=== PATIENT | male | born 1960 | race Caucasian/White ===

== ENCOUNTER 2016-08-26 17:38 | Inpatient (IN) | payer OTHER ==
[~2016-08-26] VITALS: Ht 188 cm; Wt 79.4 kg
[2016-08-26 17:49] VITALS: BP 131/76
[2016-08-26] MEDS ORDERED: Phenytoin 1,000 MG in NS 275 ML IVPB ONE (18:30)
[2016-08-26 19:20] VITALS: BP 136/79
[2016-08-26 19:37] VITALS: BP 144/84
[2016-08-26] MEDS ORDERED: NKM (19:38)
[2016-08-26] MEDS ORDERED: LORazepam Inj 2mg/ml 1ml ONE (19:40)
[2016-08-26] MEDS ORDERED: LORazepam Inj 2mg/ml 1ml IV ONE (19:45)
[2016-08-26 19:53] LABS: BASOPHILS % (AUTO) 0.8 % (0.0-2.0); EOSINOPHILS % (AUTO) 2.2 % (0.0-3.0); LYMPHOCYTES % (AUTO) 9.4 % (20.0-45.0); MEAN CORPUSCULAR HEMOGLOBIN 32.5 PG (27.0-31.0); MEAN CORPUSCULAR VOLUME 93 FL (80-99); MEAN PLATELET VOLUME 5.6 FL (6.5-10.1); MONOCYTES % (AUTO) 4.9 % (1.0-10.0); NEUTROPHILS % (AUTO) 82.7 % (45.0-75.0); PLATELET COUNT 238 K/UL (150-450); RED BLOOD COUNT 4.52 M/UL (4.70-6.10); RED CELL DISTRIBUTION WIDTH 12.7 % (11.6-14.8); WHITE BLOOD COUNT 11.3 K/UL (4.8-10.8)
--- NOTE | 2016-08-26 19:53 | Emergency Room Report ---
History of Present Illness General Chief Complaint: Altered Mental Status Source: Patient, EMS Present Illness HPI Patient is a 36-year-old male who presented after increased altered level consciousness. Patient had been noted to have a possible seizure. The patient to be postictal. History is limited by patient's initial mental status. The patient denies taking any seizure medications. Allergies: Coded Allergies: UNABLE TO ASSESS (Unverified , 08/26/16) Patient History Past Medical History: see triage record Reviewed Nursing Documentation: PMH: Agreed, PSxH: Agreed Nursing Documentation-PMH Past Medical History Deferred: Pt Cognitively Impaired Past Medical History: Deferred Review of Systems All Other Systems: limited - by mental status Physical Exam Vital Signs Date Time Temp Pulse Resp B/P Pulse Ox O2 Delivery O2 Flow Rate FiO2 08/26/16 17:28 97.2 108 18 152/88 96 Room Air Sp02 EP Interpretation: reviewed, normal General Appearance: normal inspection, well appearing, no apparent distress, alert, Postictal Head: atraumatic ENT: normal ENT inspection, hearing grossly normal, normal voice Neck: normal inspection, full range of motion, supple, no bony tend Respiratory: normal inspection, lungs clear, normal breath sounds, no respiratory distress, no retraction, no wheezing Cardiovascular #1: regular rate, rhythm, no edema Gastrointestinal: normal inspection, normal bowel sounds, non tender, soft, no guarding, no hernia Genitourinary: no CVA tenderness Musculoskeletal: normal inspection, back normal, normal range of motion Neurologic: normal inspection, alert, oriented x3, responsive, stripper cutter machine III-XII nml as tested, speech normal Psychiatric: normal inspection, judgement/insight normal, mood/affect normal Skin: no rash, other - facial abrasion, left hand abrasion Medical Decision Making Diagnostic Impression: Primary Impression: Recurrent seizures Additional Impressions: Facial abrasion Hand abrasion ER Course Patient presented for seizure. Differential diagnosis included cysticercosis, electrolyte abnormality, mass lesion, or cranial hemorrhage. Because of complexity of patient's case laboratory testing and imaging studies were ordered. The because of head trauma CT the head was ordered. CT the head read by radiology showed bilateral inferior frontal anterior temporal encephalomalacia left greater than right. The patient was noted to have a some unwitnessed seizure activity in emergency department. The patient was subsequently loaded with Dilantin. Patient was given Ativan for a recurrent seizure after loading with Dilantin. Patient was noted to have no known prior seizure history. Patient was discussed with Dr. Peace Brambila for inpatient management due to multiple seizures despite medications. Labs Test 08/26/16 19:16 08/26/16 20:03 08/26/16 20:35 White Blood Count 11.3 K/UL (4.8-10.8) Red Blood Count 4.52 M/UL (4.70-6.10) Hemoglobin 14.7 G/DL (14.2-18.0) Hematocrit 42.1 % (42.0-52.0) Mean Corpuscular Volume 93 FL (80-99) Mean Corpuscular Hemoglobin 32.5 PG (27.0-31.0) Mean Corpuscular Hemoglobin Concent 35.0 G/DL (32.0-36.0) Red Cell Distribution Width 12.7 % (11.6-14.8) Platelet Count 238 K/UL (150-450) Mean Platelet Volume 5.6 FL (6.5-10.1) Neutrophils (%) (Auto) 82.7 % (45.0-75.0) Lymphocytes (%) (Auto) 9.4 % (20.0-45.0) Monocytes (%) (Auto) 4.9 % (1.0-10.0) Eosinophils (%) (Auto) 2.2 % (0.0-3.0) Basophils (%) (Auto) 0.8 % (0.0-2.0) Prothrombin Time 10.7 SEC (9.30-11.50) Prothromb Time International Ratio 1.1 (0.9-1.1) Activated Partial Thromboplast Time 22 SEC (23-33) Sodium Level 143 mEQ/L (135-145) Potassium Level 3.9 mEQ/L (3.4-4.9) Chloride Level 102 mEQ/L (98-107) Carbon Dioxide Level 19 mEQ/L (20-30) Anion Gap 22 (5-15) Blood Urea Nitrogen 15 mg/dL (7-23) Creatinine 1.1 mg/dL (0.7-1.2) Estimat Glomerular Filtration Rate > 60 mL/min (>60) Glucose Level 142 mg/dL (74-106) Calcium Level 9.1 mg/dL (8.6-10.2) Total Bilirubin 0.5 mg/dL (0.0-1.2) Aspartate Amino Transf (AST/SGOT) 19 U/L (5-40) Alanine Aminotransferase (ALT/SGPT) 14 U/L (3-41) Alkaline Phosphatase 104 U/L (40-129) Troponin I < 0.30 ng/mL (<=0.30) Total Protein 6.8 g/dL (6.6-8.7) Albumin 4.3 g/dL (3.5-5.2) Globulin 2.5 g/dL Albumin/Globulin Ratio 1.7 (1.0-2.7) Urine Opiates Screen Negative (NEGATIVE) Urine Barbiturates Screen Negative (NEGATIVE) Phencyclidine (PCP) Screen Negative (NEGATIVE) Urine Amphetamines Screen Positive (NEGATIVE) Urine Benzodiazepines Screen Negative (NEGATIVE) Urine Cocaine Screen Negative (NEGATIVE) Urine Marijuana (THC) Screen Negative (NEGATIVE) Lactic Acid Level 8.20 mmol/L (0.66-2.22) EKG Diagnostic Results Rate: normal Rhythm: NSR ST Segments: no acute changes Last Vital Signs Date Time Temp Pulse Resp B/P Pulse Ox O2 Delivery O2 Flow Rate FiO2 08/26/16 19:37 97.2 78 17 144/84 95 Room Air Status: unchanged Disposition: ADMITTED INPATIENT Condition: Serious Edmund Alvarenga Aug 26, 2016 19:53
[2016-08-26 20:03] LABS: INR 1.1 (0.9-1.1); PROTHROMBIN TIME 10.7 SEC (9.30-11.50)
[2016-08-26 20:10] LABS: TROPONIN I < 0.30 ng/mL (<=0.30)
[2016-08-26 20:13] LABS: ALANINE AMINOTRANSFERASE 14 U/L (3-41); ALBUMIN/GLOBULIN RATIO 1.7 (1.0-2.7); ANION GAP 22 (5-15); ASPARTATE AMINO TRANSFERASE 19 U/L (5-40); CALCIUM 9.1 mg/dL (8.6-10.2); CARBON DIOXIDE 19 mEQ/L (20-30); CHLORIDE 102 mEQ/L (98-107); CREATININE 1.1 mg/dL (0.7-1.2); GLOMERULAR FILTRATION RATE > 60 mL/min (>60); HEMOLYSIS 50; POTASSIUM 3.9 mEQ/L (3.4-4.9); SODIUM 143 mEQ/L (135-145); TOTAL PROTEIN 6.8 g/dL (6.6-8.7)
[2016-08-26 20:20] LABS: REFLEX LACTIC ACID YES OR NO YES
[2016-08-26 20:36] VITALS: BP 128/71
[2016-08-26] MEDS ORDERED: LORazepam Inj 2mg/ml 1ml IV PRN (22:45)
[2016-08-26] MEDS ORDERED: Acetaminophen 650 MG SUPP RECTAL PRN (22:45)
[2016-08-26 23:13] VITALS: BP 127/76
[2016-08-27] VITALS (7 sets, daily range): BP systolic 114–134; BP diastolic 59–77
[2016-08-27] MEDS: 1/2NS w/KCl 20mEq 1000ml 1,000 ML IV SCH ×3 (00:59→15:53)
[2016-08-27] MEDS ORDERED: NovoLOG Insulin Flexpen SUBQ SCH ×4 (06:30)
[2016-08-27] MEDS ORDERED: Insulin NPH SUBQ SCH (06:30)
[2016-08-27 06:38] LABS: BASOPHILS % (AUTO) 0.9 % (0.0-2.0); EOSINOPHILS % (AUTO) 3.7 % (0.0-3.0); LYMPHOCYTES % (AUTO) 16.2 % (20.0-45.0); MEAN CORPUSCULAR HEMOGLOBIN 30.4 PG (27.0-31.0); MEAN CORPUSCULAR HGB CONC 33.3 G/DL (32.0-36.0); MEAN CORPUSCULAR VOLUME 91 FL (80-99); MEAN PLATELET VOLUME 5.7 FL (6.5-10.1); MONOCYTES % (AUTO) 8.1 % (1.0-10.0); NEUTROPHILS % (AUTO) 71.1 % (45.0-75.0); PLATELET COUNT 275 K/UL (150-450); RED BLOOD COUNT 4.85 M/UL (4.70-6.10); RED CELL DISTRIBUTION WIDTH 12.6 % (11.6-14.8); WHITE BLOOD COUNT 10.9 K/UL (4.8-10.8)
[2016-08-27 06:43] LABS: HEMOGLOBIN A1C 5.1 % (< 6.0)
[2016-08-27 07:13] LABS: ANION GAP 16 (5-15); CARBON DIOXIDE 25 mEQ/L (20-30); CHLORIDE 98 mEQ/L (98-107); CREATININE 0.9 mg/dL (0.7-1.2); GLOMERULAR FILTRATION RATE > 60 mL/min (>60); HEMOLYSIS 8; POTASSIUM 3.9 mEQ/L (3.4-4.9); SODIUM 139 mEQ/L (135-145)
[2016-08-27] MEDS: Phenytoin Susp 100mg/4ml NG SCH ×3 (08:25→22:05)
[2016-08-27] MEDS ORDERED: Pantoprazole Inj IV SCH (09:00)
[2016-08-27] MEDS: Heparin 5000 units/ml inj SUBQ SCH ×3 (09:02→22:06)
--- NOTE | 2016-08-27 10:33 | Diagnostic Imaging Report ---
Indications: Altered metal status Technique: Spiral acquisitions obtained through the brain. Angled axial and coronal 5 x 5 mm slices were reconstructed. Total dose length product 1629 mGycm. CTDI vol(s) 70 mGy. Dose reduction achieved using automated exposure control Comparison: None Findings: There is bilateral inferior frontal encephalomalacia. There is encephalomalacia of the left temporal tip. No acute hemorrhage or edema. No mass effect or midline shift. Otherwise normal bender-white differentiation. Intact calvarium. Visualized orbits and sinuses are unremarkable. Impression: Old bilateral inferior frontal, left temporal tip encephalomalacia, may indicate prior trauma or infarcts. Negative for acute intracranial bleed or mass effect This agrees with the preliminary interpretation provided overnight by Dr. Wheeler The CT scanner at [facility] is accredited by the [employer] and the scans are performed using protocols designed to limit radiation exposure to as low as reasonably achievable to attain images of sufficient resolution adequate for diagnostic evaluation.
--- NOTE | 2016-08-27 16:18 | History and Physical Report ---
DATE OF ADMISSION: 08/26/2016 CHIEF COMPLAINT: Altered level of consciousness. HISTORY OF PRESENT ILLNESS: This is a 56-year-old male who was brought in by paramedics after being found on the to have epileptic seizure. The patient was found to be postictal according to the ER physician description. He was given 2 doses of Dilantin PA and was sent to telemetry. The patient is psychotic and unable to give any further information. PAST MEDICAL HISTORY: Psychiatric problems, unable to define exactly but the patient seems to be psychotic. MEDICATIONS: Unknown. ALLERGIES: No known allergies. FAMILY HISTORY: Unable to obtain due to his mental status. SOCIAL HISTORY: Unable to obtain due to his mental status. REVIEW OF SYSTEMS: Unable to obtain due to his mental status. PHYSICAL EXAMINATION: GENERAL: This is an elderly disheveled male, who is in no acute distress. VITAL SIGNS: Blood pressure 128/71, pulse 80 and regular, respirations 20, and temperature 98.2. HEENT: The head is normocephalic and atraumatic. Pupils are equal, round, and reactive to light and accommodation consensually. NECK: Supple. Trachea midline. There was no lymphadenopathy or thyromegaly. LUNGS: Clear to auscultation and percussion. HEART: Regular rate and rhythm without rubs, murmurs, or gallops. ABDOMEN: Soft and nontender. Bowel sounds were active. EXTREMITIES: No clubbing, cyanosis, or edema. NEUROLOGICAL: He is confused. There were no gross focal findings. LABORATORY AND ANCILLARY DATA: CBC within normal limits. Urine-tox screen positive for amphetamines. Dilantin level pending. CT of the head, read by radiology, according to the ER physician showed bilateral inferior frontal and anterior temporal encephalomalacia, left greater than right. ASSESSMENT: 1. Unwitnessed seizure. 2. Encephalomalacia. 3. Psychiatric disorder. 4. Substance abuse. PLAN: 1. Obtain Dilantin level. 2. Neurology consult. 3. Obtain EEG. 4. Obtain therapeutic Dilantin level. Merrill Castro JOB#: [id number] CC:
[2016-08-27] MEDS ORDERED: Levemir Flexpen SUBQ SCH (21:00)
[2016-08-28] VITALS: BP 124/69
[2016-08-28] MEDS: 1/2NS w/KCl 20mEq 1000ml 1,000 ML IV SCH ×4 (00:28→23:45)
[2016-08-28 04:00] VITALS: BP 125/68
[2016-08-28 08:00] VITALS: BP 114/69
--- NOTE | 2016-08-28 08:15 | Cardiology Report ---
APPROVED REPORT EKG Measurement Heart [id number] Normal sinus rhythm Normal ECG
[2016-08-28] MEDS: Heparin 5000 units/ml inj SUBQ SCH ×2 (09:19→21:43)
[2016-08-28] MEDS: Phenytoin Susp 100mg/4ml NG SCH ×2 (09:52→17:14)
--- NOTE | 2016-08-28 10:54 | General Progress Note ---
Assessment/Plan Assessment/Plan Sz DO Dil[place] Level Therapeutic. Neuro Consult pending. Has encephalomalacia. To ambulate Subjective Allergies: Coded Allergies: TETRACYCLINES (Verified Allergy, Severe, [place]-like rashes, 08/27/16) Subjective Confused Objective Last 24 Hour Vital Signs Date Time Temp Pulse Resp B/P Pulse Ox O2 Delivery O2 Flow Rate FiO2 08/28/16 08:00 61 08/28/16 08:00 97.0 59 20 114/69 98 Room Air 08/28/16 04:00 91 08/28/16 04:00 97.7 57 20 125/68 98 Room Air 08/28/16 00:00 62 08/28/16 00:00 97.8 59 20 124/69 97 Room Air 08/27/16 20:00 97.5 70 20 119/59 97 Room Air 08/27/16 20:00 72 08/27/16 16:00 60 08/27/16 15:48 97.6 58 20 114/68 97 Room Air 08/27/16 12:00 70 08/27/16 11:58 97.7 64 19 121/71 97 Room Air Intake and Output 08/27/16 08/28/16 19:00 07:00 Intake Total 2020 ml 817 ml Output Total 200 ml 2100 ml Balance 1820 ml -1283 ml Intake Oral 520 ml IV Total 1500 ml 817 ml Output Urine Total 200 ml 2100 ml # Voids 4 Laboratory Tests 08/28/16 08:20: Phenytoin (Dilantin) Level 11.7 Height (Feet): 6 Height (Inches): 2.00 Weight (Pounds): 175 Objective Cv RR Lungs CTA Abd SNT. BS + E No CCE AAYUSH WALTER August 28, 2016 10:54
[2016-08-28 12:00] VITALS: BP 139/53
--- NOTE | 2016-08-28 13:07 | Neurology Progress Note ---
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
[2016-08-28 14:21] LABS: THYROID STIMULATING HORMONE 1.37 uIU/mL (0.300-4.500)
[2016-08-28 16:00] VITALS: BP 109/71
[2016-08-28 20:00] VITALS: BP 109/71
--- NOTE | 2016-08-28 22:58 | Consultation ---
DATE OF CONSULTATION: 08/28/2016 NEUROLOGICAL CONSULTATION: CONSULTING PHYSICIAN: Santos Fairbanks M.D. ATTENDING/REQUESTING PHYSICIAN: Peace Burr M.D. HISTORY OF PRESENT ILLNESS: This is a 56-year-old man seen in neurological consultation to evaluate the episodes of transient loss of consciousness. The patient informed me that he is homeless. He had no seizures in the past. He was brought to this hospital for "possible" seizures. He was postictal, currently also confirming presence of bitten tongue and broke nose bridge. His vital signs on admission, blood pressure 152/88, temperature 97.2. His initial laboratory studies included CBC with WBC 11.3. Coagulation panel normal. Toxicology panel positive for methamphetamine. Phenytoin level today is 11.7. Chemistry panel, normal TSH, carbon dioxide of 19, anion gap of 22, blood sugar 142, lactic acid 8.20. CAT scan of the brain, old bilateral inferior frontal and left temporal tip encephalomalacia indicative of prior trauma or infarct. No evidence of acute abnormalities. No mass effect. Following admission, EEG was obtained and this revealed no ongoing seizure event, but there was slight diffuse slowing . The patient was loaded with Dilantin. While under observation, he had unwitnessed episode seizure. PAST MEDICAL HISTORY: The patient denies major medical problems. He recalled having multiple head trauma in the past. The patient is amnestic of the events. MEDICATIONS: He is not on any medications. FAMILY HISTORY: No family members with seizures. He has a daughter who lives in [facility]. SOCIAL HISTORY: The patient is homeless. He is a smoker and occasionally using methamphetamines. Denies alcohol abuse. Homelessness for the last five to six years. He previously worked as a hairdresser. He is unaware why he is not working blaming only damage to left hand. PHYSICAL EXAMINATION: GENERAL: A well-developed, well-nourished man found to be lying in bed. VITAL SIGNS: His vital signs now are stable. Blood pressure 129/53, afebrile, heart rate 59. HEENT: Head normocephalic. No external evidence of injury except a healing bruise over the nose bridge. No otorrhea. No rhinorrhea. Slightly bitten tongue on the left. MUSCULOSKELETAL: There is a small muscle atrophy of both hands, more on the left. NEUROLOGIC: MENTAL STATUS: The patient is alert and oriented to his name, age, and date. Denies having psychiatric illnesses. Follows commands. Able to respond to . CRANIAL NERVE II: Pupils both responding to light and accommodation. Extraocular movements intact. No nystagmus. CRANIAL NERVE V: Normal corneal responses. CRANIAL NERVE VII: No facial asymmetry. CRANIAL NERVE VIII: Normal hearing. CRANIAL NERVE IX THROUGH XII: Tongue is in midline. MOTOR EXAMINATION: Strength 5/5 in all extremities. Reduced left hand machine cementer and folder. REFLEXES: Deep tendon reflexes depressed bilaterally. Plantar responses flexor. SENSORY EXAMINATION: Normal to pin stimulation. Gait is slow, but stable. IMPRESSION: 1. Radiological evidence of encephalomalacia compatible with history of old cerebral contusion. 2. New onset of generalized seizure activity. 3. Substance abuse. 4. Homelessness. RECOMMENDATION: The patient was appropriately started on anticonvulsants. He is currently on Dilantin 100 mg t.i.d. This will be appropriately adjusted. director field services referral for proper placement. Certainly, the patient is unable to drive. Recheck orthostatic blood pressure, sedimentation rate, JEFFREY, and B12. Thank you for allowing me to see this interesting patient in neurological consultation. Santos Fairbanks M.D. DR: Tatyana JOB#: [id number] CC:
[2016-08-29] MEDS: 1/2NS w/KCl 20mEq 1000ml 1,000 ML IV SCH ×3 (01:16→18:28)
[2016-08-29 04:00] VITALS: BP 141/76
[2016-08-29 08:00] VITALS: BP 119/62
[2016-08-29] MEDS: Phenytoin Susp 100mg/4ml NG SCH ×2 (08:22→17:01)
[2016-08-29] MEDS: Heparin 5000 units/ml inj SUBQ SCH ×2 (08:24→21:20)
[2016-08-29 12:00] VITALS: BP 99/58
--- NOTE | 2016-08-29 12:06 | Neurology Progress Note ---
Interim History Interim History ROS Limited/Unobtainable: No Complaints: none Events: stable Objective Physical Exam Last Vital Signs Date Time Temp Pulse Resp B/P Pulse Ox O2 Delivery O2 Flow Rate FiO2 08/29/16 08:00 74 08/29/16 08:00 98.1 20 119/62 100 Room Air 08/28/16 20:00 2.0 Laboratory Tests Test 08/28/16 13:45 08/29/16 05:15 Erythrocyte Sedimentation Rate 7 MM/HR (0-20) Ammonia 53 umol/L (16-60) Thyroid Stimulating Hormone (TSH) 1.370 uIU/mL (0.300-4.500) Phenytoin (Dilantin) Level 12.6 ug/mL (10-20) General: well developed, well nourished, no acute distress Head: normocophalic, other - recent bruise nose bridge Neurologic Exam Mental Status: awake, alert Speech: normal speech, no dysarthia Language: normal language, no aphasia Cranial Nerve II: fundus normal, visual champagne, no papilledema Cranial Nerves III, IV, : PERRLA, EOMI, pupils Cranial Nerve V: normal facial sensations, temporales function normal, masseters function normal, pterygoids function normal Cranial Nerve VII: no facial asymmetry, normal facial expressions Cranial Nerve VIII: normal hearing, no nystagmus Cranial Nerve IX: normal palate elevation, gag response Cranial Nerve X: no voice hoarseness Cranial Nerve XI: SCM symmetric, trapezii function normal Cranial Nerve XII: tongue midline, no tongue atrophy/fasciculations Motor System: normal muscle tone, strength 5/5, no involuntary movement, no muscle wasting Sensory: normal pinprick, normal light touch, normal position sense, normal graphesthesia Coordination: normal finger to nose bilaterally Deep Tendon Reflexes: 1+ ankle (L), 1+ ankle (R), 1+ bicep (L), 1+ bicep (R), 1 + brachioradialis (L), 1+ brachioradialis (R), 1+ knee (L), 1+ knee (R), 1+ tricep (L), 1+ tricep (R) Reflexes: mute plantar (L), mute plantar (R) Impression/Recommendations Problems: (1) seizure disorder (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
--- NOTE | 2016-08-29 15:33 | General Progress Note ---
Assessment/Plan Assessment/Plan Sz DO Dilantin Level Therapeutic. Neuro Consult pending. Has encephalomalacia. To ambulate DC to SW destination Subjective Allergies: Coded Allergies: TETRACYCLINES (Verified Allergy, Severe, [place]-like rashes, 08/27/16) Subjective Confused Objective Last 24 Hour Vital Signs Date Time Temp Pulse Resp B/P Pulse Ox O2 Delivery O2 Flow Rate FiO2 08/29/16 12:00 67 08/29/16 12:00 97.5 57 20 99/58 99 Room Air 08/29/16 08:00 74 08/29/16 08:00 98.1 57 20 119/62 100 Room Air 08/29/16 04:00 98.2 56 20 141/76 100 Room Air 08/29/16 03:55 52 08/29/16 00:00 53 08/28/16 20:00 61 08/28/16 20:00 97.0 55 20 109/71 98 Room Air 2.0 08/28/16 16:00 54 08/28/16 16:00 97.0 55 20 109/71 98 Room Air Intake and Output 08/28/16 08/29/16 19:00 07:00 Intake Total 3060 ml 1375 ml Output Total 2375 ml 300 ml Balance 685 ml 1075 ml Intake Oral 1560 ml IV Total 1500 ml 1375 ml Output Urine Total 2375 ml 300 ml Laboratory Tests 08/29/16 05:15: Phenytoin (Dilantin) Level 12.6 08/29/16 13:00: Phenytoin (Dilantin) Level 13.8 Height (Feet): 6 Height (Inches): 2.00 Weight (Pounds): 175 Objective Somnolent Cv RR Lungs CTA Abd SNT. BS + E No CCE AAYUSH WALTER August 29, 2016 15:33
[2016-08-29] MEDS ORDERED: PHENYTOIN100 MG/4 M NG (15:45)
[2016-08-29 16:00] VITALS: BP 109/65
[2016-08-29 19:40] VITALS: BP 117/69
[2016-08-29 23:57] VITALS: BP 127/64
[2016-08-30] MEDS: 1/2NS w/KCl 20mEq 1000ml 1,000 ML IV SCH ×3 (02:31→14:12)
[2016-08-30 04:00] VITALS: BP 116/85
[2016-08-30] MEDS ORDERED: Acetaminophen 650 MG SUPP RECTAL PRN (06:45)
[2016-08-30] MEDS ORDERED: LORazepam Inj 2mg/ml 1ml IV PRN (06:45)
[2016-08-30 08:00] VITALS: BP 107/49
[2016-08-30] MEDS ORDERED: Heparin 5000 units/ml inj SUBQ SCH (09:00)
[2016-08-30] MEDS ORDERED: Phenytoin Susp 100mg/4ml NG SCH (09:00)
[2016-08-30 12:00] VITALS: BP 112/60
--- NOTE | 2016-08-30 15:06 | General Progress Note ---
Assessment/Plan Assessment/Plan Sz DO Dilantin Level Therapeutic. Neuro Consult pending. Has encephalomalacia. To ambulate DC to SW destination Rx called to Pharmacy Subjective Allergies: Coded Allergies: TETRACYCLINES (Verified Allergy, Severe, [place]-like rashes, 08/27/16) Subjective Confused Objective Last 24 Hour Vital Signs Date Time Temp Pulse Resp B/P Pulse Ox O2 Delivery O2 Flow Rate FiO2 08/30/16 12:00 97.0 68 18 112/60 Room Air 08/30/16 08:00 97.0 69 18 107/49 97 Room Air 08/30/16 04:00 97.7 71 18 116/85 97 Room Air 08/29/16 23:57 97.5 67 18 127/64 97 Room Air 08/29/16 20:00 63 08/29/16 19:40 97.7 64 18 117/69 96 Room Air 08/29/16 16:00 56 08/29/16 16:00 98.4 52 20 109/65 99 Room Air Intake and Output 08/29/16 08/30/16 19:00 07:00 Intake Total 2335 ml 1970 ml Output Total 750 ml Balance 1585 ml 1970 ml Intake Oral 960 ml 450 ml IV Total 1375 ml 1520 ml Output Urine Total 750 ml # Voids 3 2 Height (Feet): 6 Height (Inches): 2.00 Weight (Pounds): 175 Objective Somnolent Cv RR Lungs CTA Abd SNT. BS + E No CCE AAYUSH WALTER August 30, 2016 15:06
[2016-08-30] MEDS ORDERED: D5NS 1000ml IV ONE (15:29)
--- NOTE | 2016-08-31 12:43 | Discharge Summary ---
Discharge Summary Hospital Course Date of Admission Aug 26, 2016 at 19:55 Date of Discharge August 30, 2016 at 15:30 Admitting Diagnosis seizure HPI Terrance Nixon is a 56 year old male who was admitted on Aug 26, 2016 at 19:55 for Seizure Hospital Course [id number] Discharge Discharge Disposition Patient was discharged to [facility] Discharge Diagnoses: Jossie Flores NP August 31, 2016 12:43
--- NOTE | 2016-08-31 18:08 | Electroencephalogram ---
DATE OF PROCEDURE: 08/27/2016 ELECTROENCEPHALOGRAPHY REPORT REQUESTING PHYSICIAN: Peace Burr M.D. HISTORY: The patient is a 56-year-old man with a history of persistent unresponsiveness with a evidence of bilateral old right frontal encephalomalacia. MEDICATIONS: Current treatment includes Dilantin. TECHNIQUE: EEG was done using 18 electrodes, placed scalp to scalp, scalp to ear montages according to 10/20 International System. In a most wakeful portions of recording, background activity consists of 8 cycles per second, low to medium voltage, alpha activity. Most of the recording, there was intermittent drowsiness with background consists of poorly organized 6-7 cycles per second theta activities bilaterally. Episodes of movement artifacts were noted. There was no asymmetry from side to side. There were no spike or wave activities. IMPRESSION: Normal awake stage 1/2 sleep electroencephalogram.s COMMENT: Absence of paroxysmal event on a single recording does not rule out seizure disorder. Santos Fairbanks M.D. DR: EARNEST JOB#: [id number] CC:
--- NOTE | 2016-09-01 04:58 | Discharge Summary 2 SIG ---
DATE OF ADMISSION: 08/26/2016 DATE OF DISCHARGE: 08/30/2016 CERTIFIED REAL ESTATE APPRAISER: Santos Fairbanks M.D. BRIEF HOSPITAL COURSE: The patient is a 56-year-old male, who was brought in by paramedics after being found to have epileptic seizure. The patient was postictal on arrival to ED, he was given [address] of the head done showed bilateral inferior frontal and temporal encephalomalacia, left greater than right. He was loaded with Dilantin. He was admitted with seizure precautions and was seen by Dr. Fairbanks. A toxicology panel was positive for methamphetamine. Phenytoin level was checked. Following admission EEG was obtained and revealed no ongoing seizure evident and revealed no ongoing seizure event, but there was slight diffuse slowing. He was started on Dilantin 100 mg t.i.d. and was eventually changed to 200 mg b.i.d. and underwent physical therapy and was seen by social service and the patient was discharged home, refused assisted. FINAL DIAGNOSES: 1. Seizure disorder with acute exacerbation. 2. Encephalomalacia. 3. Homelessness. 4. Facial abrasion. 5. Substance abuse. I have been assigned to dictate discharge summary on this account and I was not involved in the patient's management. Peace Burr M.D. I have been assigned to dictate discharge summary on this account and I was not involved in the patient's management. Jossie Flores N.P. DR: Nettie JOB#: [id number] CC:
== END 2016-08-30 15:30 | disposition home or self-care (01) | DRG 53 ==
LOC: EDBD 17:38 → EMR 19:07 → 2E 19:55 → EDBEDREQ 20:56 → 2E 23:27 → 4E 08-30 05:52
DX: G40.909 Epilepsy, unspecified, not intractable, without status epilepticus (principal); G93.89 Other specified disorders of brain; F15.10 Other stimulant abuse, uncomplicated; S00.81XA Abrasion of other part of head, initial encounter; F43.20 Adjustment disorder, unspecified; X58.XXXA Exposure to other specified factors, initial encounter; F17.200 Nicotine dependence, unspecified, uncomplicated; Z87.820 Personal history of traumatic brain injury; Z88.8 Allergy status to other drugs, medicaments and biological substances; F29 Unspecified psychosis not due to a substance or known physiological condition
CPT/HCPCS: 36415; 70450; 74230; 80048; 80053; 80185; 80300; 82140; 82962; 83036; 83605; 83735; 84443; 84484; 85025; 85610; 85651; 85730; 87081; 93005; 95819; J1165; J1815